=== PATIENT | female | born 1970 | race Caucasian/White ===

== ENCOUNTER 2017-05-22 20:51 | Emergency (ER) | payer OTHER ==
[~2017-05-22] VITALS: Ht 160 cm; Wt 59.0 kg
[~2017-05-22 20:51] MED LIST: ASPIRIN81 M4 PO; CARDIZEM CD300 M1; XANAX0.5 M1 PO
--- NOTE | 2017-05-22 21:20 | ED MVC/FALL/TRAUMA COMPLAINT ---
History of Present Illness General Chief Complaint: Lower Extremity Injury Stated Complaint: FALL, INJURY TO R THIGH Source: patient Exam Limitations: no limitations Vital Signs & Intake/Output Vital Signs & Intake/Output Vital Signs Date Time Temp Pulse Resp B/P B/P Pulse O2 O2 Flow FiO2 Mean Ox Delivery Rate 05/22 2250 78 112/70 05/22 2103 98.1 79 18 109/71 97 Room Air Allergies Coded Allergies: NO KNOWN ALLERGIES (08/28/16) Reconcile Medications Alprazolam (Xanax) 0.5 MG TABLET 1 TAB PO BIDP PRN ANXIETY (Reported) Aspirin (Aspirin*) (Unknown Strength) TAB.CHEW (Unknown Dose) PO DAILY HEART HEALTH (Reported) Diltiazem HCl (Cardizem Cd) (Unknown Strength) CAP.ER.24H (Unknown Dose) HEART (Reported) Triage Note: 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 NO OTHER COMPLAINTS. PT DENIES HEADSTRIKE. VSS. ICE PACK PROVIDED. PT REFUSED PAIN MEDS IN TRIAGE. Triage Nurses Notes Reviewed? yes Onset: Abrupt Duration: hour(s): (1), constant Timing: recent history Severity: moderate Severity Numbers: 6 Injuries/Fall Location: head, neck, lower extremity Method of Injury: fall Loss of Consciousness: unsure No Modifying Factors: none Associated Symptoms: denies HPI: 46-year-old female history of subarachnoid presents to ER for evaluation After a mechanical fall possibly 1 hour ago while she was feeding her cats. The patient has had right-sided residual weakness status post her subarachnoid bleed and states that tonight her leg without causing her to fall. She now presents with a large bruise to her right thigh and is complaining of [id number] aching pain to her neck and a headache. She is unsure if she blacked out. Her family ran into the room immediately and she was awake she has been ambulatory since the fall she is not taken anything for her pain which is nonradiating. She denies any other injury no arm chest back or abdominal pain no nausea no vomiting or change in her mental status per family (MARY FRITZ,KRISTIN) Past History Travel History Traveled to [place] past 21 day No Medical History Any Pertinent Medical History? see below for history Neurological: brain aneursym, sah Cardiovascular: hypertension Renal: nephrolithiasis Cancer(s): cervical cancer Surgical History Surgical History: unobtainable Psychosocial History What is your primary language Belarusian Tobacco Use: Current Daily Use Daily Tobacco Use Amount/Type: => 5 Cigarettes daily Family History Hx Contributory? No (KRISTIN RICKS) Review of Systems Review of Systems Constitutional: Reports: see HPI. All Other Systems: Reviewed and Negative Comments Review of systems: See HPI, All other systems negative. Constitutional, no chills no fever, no malaise HEENT: No visual changes no sore throat no congestion Cardiovascular: No chest pain , no palpitation Skin: no rashes, no change in skin Respiratory: No dyspnea no cough no sputum no hemoptysis GI: No nausea no vomiting, no diarrhea, : No dysuria Muscle skeletal: No joint pain, no joint swelling, no back pain, neck pain, Neurologic: No numbness no confusion, headache Psych: No stress Heme/endocrine: No bruising Immunology: No lymphadenopathy (KRISTIN RICKS) Physical Exam Physical Exam General Appearance: well developed/nourished, no apparent distress, alert, awake Comments: Well-developed well-nourished person in no acute distress HEENT: Normal EENT exam; PERRL, EOMI, no nystagmus. HEAD is atraumatic. moist mucous membranes. Neck: Supple, bilateral paracervical tenderness, normal range of motion without pain or tenderness Back: Nontender, no CVA tenderness. Full range of motion Cardiovascular: Regular rate and rhythms no murmurs rubs or gallops, normal JVP Respiratory: Chest nontender.There were no bony deformities, no asymmetry. No respiratory distress. Patient speaking in full complete sentences. Breath sounds clear to auscultation bilaterally: NO W/R/R Abdomen: Soft, nontender nondistended Extremity: There is a large hematoma 7 x 4 cm noted to the right posterior lateral proximal thigh UreSil exam atraumatic No edema, full range of motion of extremities, normal and equal pulses bilaterally, 5 out of 5 strength noted to bilateral upper and lower extremities Neuro: Alert oriented x3, motor sensory normal, cranial nerves II through XII grossly intact. There were no obvious focal neurologic abnormalities. Skin: No appreciable rash on exposed skin, skin is warm and dry. Psych: Mood and affect is normal, memory and judgment is normal. Core Measures ACS in differential dx? No Severe Sepsis Present: No Septic Shock Present: No (KRISTIN RICKS) Progress Differential Diagnosis: C/T/L spine injury, ext injury, spinal cord injury Plan of Care: Orders Procedure Date/time Status XRY-HIP 2-3 VIEWS, RIGHT 05/[address] HEAD WO IV CONTRAST 05/[address] CERV SPINE WO IV CONTRAST 05/22 2136 Active CAT scan x-rays ordered patient medicated oxycodone by mouth reports sx improved with medication. I discussed with the patient at length all of their results. I had an extensive conversation regarding need for close follow up with their primary care physician this week as well as return precautions. I answered all of their questions, they feel comfortable with the plan and follow-up care. (KRISTIN RICKS) Diagnostic Imaging: Viewed by Me: Radiology Read, CT Scan. Discussed w/RAD: Radiology Read, CT Scan. Radiology Impression: PATIENT: ZACARIAS JAUREGUI PRESENT AGE: 46 PATIENT ACCOUNT NO: [id number] : 69 LOCATION: [facility] ORDERING PHYSICIAN: KRISTIN FRITZ SERVICE DATE: 05/22/17 EXAM TYPE: RAD - XRY- HIP 2-3 VIEWS, RIGHT EXAMINATION: XR HIP, RIGHT CLINICAL INFORMATION: Right hip pain. Fall. Hematoma. COMPARISON: None TECHNIQUE: Two views of the right hip. AP pelvis FINDINGS: No fracture. No dislocation. Hip joints are normal. No soft tissue abnormality. IMPRESSION: Normal right hip. Normal pelvis. DICTATED BY: ALPA VALERA MD DATE/TIME DICTATED:05/22/172235 SIGN WRITER HAND:NGA DATE/TIME TRANSCRIBED:05/22/172235 CONFIDENTIAL, DO NOT COPY WITHOUT APPROPRIATE AUTHORIZATION. <Electronically signed in Other Vendor System> SIGNED BY: ALPA VALERA MD 05/22/17 224, PATIENT: ZACARIAS JAUREGUI PRESENT AGE: 46 PATIENT ACCOUNT NO: [id number] : 69 LOCATION: [facility] ORDERING PHYSICIAN: KRISTIN FRITZ SERVICE DATE: 05/22/17 EXAM TYPE : CAT - CT CERV SPINE WO IV CONTRAST; CT HEAD WO IV CONTRAST CT HEAD WITHOUT IV CONTRAST CT CERVICAL SPINE WITHOUT IV CONTRAST INDICATION: Pain status post fall , history of subarachnoid hemorrhage. COMPARISON: 08/28/2016. TECHNIQUE: Multidetector CT acquisitions of the head, maxillofacial region, and cervical spine were obtained without IV contrast. Multiplanar reformats were acquired and utilized for image interpretation. ESTIMATED DOSE: DLP 883 mGy-cm. FINDINGS: HEAD: There is no intracranial hemorrhage, hydrocephalus, extra-axial surface collection, midline shift, or other herniation pattern. There is a new metallic artifact identified in the region of the vertebrobasilar junction on the right side suggesting aneurysm coils. 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 This was not identified on the prior exam. Rashid to white matter differentiation is otherwise diffusely maintained without evidence of an evolved acute territorial infarct. The basilar cisterns are preserved. No significant soft tissue abnormality. No acute osseous abnormality. The paranasal sinuses and the mastoid air cells are well-aerated. There is pneumatization of the left petrous apex. CERVICAL SPINE: There is anatomic alignment of the vertebral bodies and posterior elements. There is no acute fracture and there is no acute subluxation. The craniocervical and atlantoaxial articulations are normal. There is no prevertebral soft tissue swelling. No significant soft tissue abnormality within the neck. The visualized lung apices are clear. There is mild paraseptal emphysematous changes. IMPRESSION: 1. No acute intracranial abnormality. 2. Posttreatment changes are identified in the vertebral basilar system on the right side suggesting a previously coiled aneurysm with a new small focus of encephalomalacia in the right CLAM SHUCKER territory likely related to the previous disease or treatment. 3. No acute osseous abnormality within the cervical spine. DICTATED BY: EFRAIN PEREZ MD DATE/TIME DICTATED:05/22/172223 SIGN WRITER HAND:NGA DATE/TIME TRANSCRIBED:05/22/172223 CONFIDENTIAL, DO NOT COPY WITHOUT APPROPRIATE AUTHORIZATION. <Electronically signed in Other Vendor System> SIGNED BY: EFRAIN PEREZ MD 05/22/172238 (KRISTIN RICKS) Departure Departure Time of Disposition: 2241 Disposition: HOME OR SELF CARE Condition: Stable Clinical Impression Primary Impression: Hematoma Secondary Impressions: Cervical strain, Fall, Minor head injury Referrals: RAVEN MCMANUS MD (PCP/Family) Additional Instructions: Rest, ice packs as discussed continue taking her pain medication as prescribed follow-up with her primary care physician and return to the ER with any concerns. Departure Forms: Customer Survey General Discharge Information (KRISTIN RICKS) PA/LOSS MITIGATION SPECIALIST Co-Sign Statement Statement: ED Attending supervision documentation- I saw and evaluated the patient. I have also reviewed all the pertinent lab results and diagnostic results. I agree with the findings and the plan of care as documented in the PA's/LOSS MITIGATION SPECIALIST's documentation. x I have reviewed the ED Record and agree with the PA's/LOSS MITIGATION SPECIALIST's documentation. [] Additions or exceptions (if any) to the PAs/LOSS MITIGATION SPECIALIST's note and plan are summarized below: [] (LUIS A BRIONES,ADRIEN)
--- NOTE | 2017-05-22 22:39 | CT SCAN REPORT ---
CT HEAD WITHOUT IV CONTRAST CT CERVICAL SPINE WITHOUT IV CONTRAST INDICATION: Pain status post fall, history of subarachnoid hemorrhage. COMPARISON: 08/28/2016. TECHNIQUE: Multidetector CT acquisitions of the head, maxillofacial region, and cervical spine were obtained without IV contrast. Multiplanar reformats were acquired and utilized for image interpretation. ESTIMATED DOSE: DLP 883 mGy-cm. FINDINGS: HEAD: There is no intracranial hemorrhage, hydrocephalus, extra-axial surface collection, midline shift, or other herniation pattern. There is a new metallic artifact identified in the region of the vertebrobasilar junction on the right side suggesting aneurysm coils. 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 This was not identified on the prior exam. Rashid to white matter differentiation is otherwise diffusely maintained without evidence of an evolved acute territorial infarct. The basilar cisterns are preserved. No significant soft tissue abnormality. No acute osseous abnormality. The paranasal sinuses and the mastoid air cells are well-aerated. There is pneumatization of the left petrous apex. CERVICAL SPINE: There is anatomic alignment of the vertebral bodies and posterior elements. There is no acute fracture and there is no acute subluxation. The craniocervical and atlantoaxial articulations are normal. There is no prevertebral soft tissue swelling. No significant soft tissue abnormality within the neck. The visualized lung apices are clear. There is mild paraseptal emphysematous changes. IMPRESSION: 1. No acute intracranial abnormality. 2. Posttreatment changes are identified in the vertebral basilar system on the right side suggesting a previously coiled aneurysm with a new small focus of encephalomalacia in the right BENDER MACHINE OPERATOR territory likely related to the previous disease or treatment. 3. No acute osseous abnormality within the cervical spine.
--- NOTE | 2017-05-22 22:41 | RADIOLOGY REPORT ---
EXAMINATION: XR HIP, RIGHT CLINICAL INFORMATION: Right hip pain. Fall. Hematoma. COMPARISON: None TECHNIQUE: Two views of the right hip. AP pelvis FINDINGS: No fracture. No dislocation. Hip joints are normal. No soft tissue abnormality. IMPRESSION: Normal right hip. Normal pelvis.
[2017-05-22 22:50] VITALS: BP 112/70
== END 2017-05-22 22:52 ==
LOC: ERH 20:51
DX: S16.1XXA Strain of muscle, fascia and tendon at neck level, initial encounter (principal); S09.90XA Unspecified injury of head, initial encounter; S70.11XA Contusion of right thigh, initial encounter; W19.XXXA Unspecified fall, initial encounter
CPT/HCPCS: 73502-RT